=== PATIENT | male | born 1980 ===

== ENCOUNTER → 2018-10-19 | Outpatient (REF) | payer OTHER ==
[2018-10-19 15:03] LABS: SEMEN APPEARANCE OPAQUE (OPAQUE); SEMEN VISCOSITY LIQUID (LIQUID); SEMEN VOLUME 1.8 ml (4.0-5.0)
[2018-10-19 15:04] LABS: SEMEN pH 8.5 (7.0-8.0); SPERM CONCENTRATION 68.4 M/ml (>=15.0); WBC CONCENTRATION <=1 M/ml (<=1 M/ml)
[2018-10-19 15:05] LABS: % NORMAL FORMS < 4 % (>=4); IMMOTILITY 90 %; NON PROGRESSIVE MOTILITY (c) 6 %; PROGRESSIVE MOTILITY (a) 4 % (>=32); TOTAL MOTILITY 10 % (>=40)
[2018-10-19 15:06] LABS: SPERM# 123.1 M/Ejac (>=39); TOTAL FUNCTIONAL 0.3 M/Ejac.; TOTAL PROGRESSIVE SPERM 5.2 M/Ejac.
== END ==
LOC: M LAB REF 14:51
DX: Z31.41 Encounter for fertility testing (principal)